=== PATIENT | male | born 1960 | race African-American/Black ===

== ENCOUNTER 2018-07-11 15:43 | Observation (INO) | payer OTHER ==
[2018-07-11] VITALS (8 sets, daily range): BP systolic 130–148; BP diastolic 79–93
[~2018-07-11] VITALS: Ht 182.9 cm; Wt 84.8 kg
[2018-07-11] MEDS ORDERED: Morphine Sulfate 4mg/ml Inj (IV USE ONLY) IVP ONE ×2 (16:00→16:15)
[2018-07-11] MEDS ORDERED: Morphine Sulfate 4mg/ml Inj (IV USE ONLY) ONE (16:15)
--- NOTE | 2018-07-11 16:15 | Emergency Room Report ---
History of Present Illness General Chief Complaint: Pain Source: Patient, EMS Present Illness HPI 57-year-old male presenting with right inguinal hernia pain. Patient states that his inguinal hernia unable to be reduced for the last hour. Has not had a bowel movement today but is passing gas. No vomiting. Complaining of severe pain for the last hour no other complaints Allergies: Coded Allergies: No Known Allergies (Unverified , 07/11/18) Patient History Past Medical History: see triage record Past Surgical History: none Pertinent Family History: none Reviewed Nursing Documentation: PMH: Agreed; PSxH: Agreed Review of Systems All Other Systems: negative except mentioned in HPI Physical Exam Vital Signs Date Time Temp Pulse Resp B/P (MAP) Pulse Ox O2 Delivery O2 Flow Rate FiO2 07/11/18 15:40 98.6 66 20 147/89 98 Room Air 98.6 Sp02 EP Interpretation: reviewed, normal General Appearance: alert, GCS 15, non-toxic, moderate distress Head: normocephalic, atraumatic Eyes: bilateral eye normal inspection, bilateral eye PERRL, bilateral eye EOMI ENT: normal ENT inspection, normal pharynx, normal voice, moist mucus membranes Neck: normal inspection, full range of motion, supple Respiratory: normal inspection, lungs clear, normal breath sounds, no respiratory distress, no retraction, no wheezing, speaking full sentences, chest symmetrical Cardiovascular #1: normal inspection, regular rate, rhythm, no edema, normal capillary refill Cardiovascular #2: 2+ radial (R), 2+ radial (L) Gastrointestinal: normal inspection, non tender, soft, non-distended, no guarding Genitourinary: other - Right inguinal hernia unable to be reduced, moderately/ large Musculoskeletal: normal inspection, back normal, normal range of motion, non- tender Neurologic: normal inspection, alert, oriented x3, responsive, motor strength/ tone normal, sensory intact, normal gait, speech normal Psychiatric: normal inspection, judgement/insight normal, memory normal Skin: normal inspection, normal color, no rash, warm/dry, well hydrated, normal turgor Medical Decision Making Diagnostic Impression: Primary Impression: Incarcerated inguinal hernia, unilateral ER Course 57-year-old male with right inguinal hernia DDX: Right inguinal hernia unable to be reduced, tender last 2 hours Plan: Obtain labs, pain medication Attempt reduction versus surgery consult ER course: Patient has been monitored during ED stay, HD stable Given morphine 2 and Zofran Attempted reduction 2, however unsuccessful despite giving a lot of pain medication. I spoke with . He will take patient to the OR Disposition: Patient is to be admitted Medicine via the OR. I spoke with covering for Dr blakely Please note that this Emergency Department Report was dictated using [employer] leather sorter technology software, occasionally this can lead to erroneous entry secondary to interpretation by the dictation equipment. Rhythm Strip EP Interpretation: Yes Rate: 77 Rhythm: NSR, no PVCs, no ectopy EKG Diagnostic Results EP Interpretation: Yes Rate: normal Rhythm: NSR ST Segments: No acute changes ASA given to patient: No Laboratory Tests Test 07/11/18 15:56 White Blood Count 4.8 K/UL (4.8-10.8) Red Blood Count 4.56 M/UL (4.70-6.10) L Hemoglobin 14.0 G/DL (14.2-18.0) L Hematocrit 40.5 % (42.0-52.0) L Mean Corpuscular Volume 89 FL (80-99) Mean Corpuscular Hemoglobin 30.7 PG (27.0-31.0) Mean Corpuscular Hemoglobin Concent 34.6 G/DL (32.0-36.0) Red Cell Distribution Width 10.5 % (11.6-14.8) L Platelet Count 319 K/UL (150-450) Mean Platelet Volume 5.3 FL (6.5-10.1) L Neutrophils (%) (Auto) 60.4 % (45.0-75.0) Lymphocytes (%) (Auto) 28.1 % (20.0-45.0) Monocytes (%) (Auto) 8.1 % (1.0-10.0) Eosinophils (%) (Auto) 1.7 % (0.0-3.0) Basophils (%) (Auto) 1.7 % (0.0-2.0) Prothrombin Time 11.4 SEC (9.30-11.50) Prothrombin Time INR 1.1 (0.9-1.1) PTT 34 SEC (23-33) H Urine Color Yellow Urine Appearance Clear Urine pH 6 (4.5-8.0) Urine Specific [place] 1.020 (1.005-1.035) Urine Protein Negative (NEGATIVE) Urine Glucose (UA) Negative (NEGATIVE) Urine Ketones Negative (NEGATIVE) Urine Blood 1+ (NEGATIVE) H Urine Nitrite Negative (NEGATIVE) Urine Bilirubin Negative (NEGATIVE) Urine Urobilinogen 1 MG/DL (0.0-1.0) H Urine Leukocyte Esterase Negative (NEGATIVE) Urine RBC 0-2 /HPF (0 - 0) H Urine WBC 0-2 /HPF (0 - 0) Urine Squamous Epithelial Cells Occasional /LPF Urine Bacteria None /HPF (NONE) Sodium Level 137 MMOL/L (136-145) Potassium Level 4.0 MMOL/L (3.5-5.1) Chloride Level 102 MMOL/L (98-107) Carbon Dioxide Level 31 MMOL/L (21-32) Anion Gap 4 mmol/L (5-15) L Blood Urea Nitrogen 14 mg/dL (7-18) Creatinine 1.1 MG/DL (0.55-1.30) Estimate Glomerular Filtration Rate > 60 mL/min (>60) Glucose Level 102 MG/DL (74-106) Lactic Acid Level 0.90 mmol/L (0.4-2.0) Calcium Level 9.6 MG/DL (8.5-10.1) Total Bilirubin 0.4 MG/DL (0.2-1.0) Aspartate Amino Transferase (AST) 33 U/L (15-37) Alanine Aminotransferase (ALT) 43 U/L (12-78) Alkaline Phosphatase 67 U/L (46-116) Total Protein 8.4 G/DL (6.4-8.2) H Albumin 3.5 G/DL (3.4-5.0) Globulin 4.9 g/dL Albumin/Globulin Ratio 0.7 (1.0-2.7) L Lipase 55 U/L (73-393) L Last Vital Signs Date Time Temp Pulse Resp B/P (MAP) Pulse Ox O2 Delivery O2 Flow Rate FiO2 07/11/18 16:05 98.6 07/11/18 15:40 66 20 147/89 98 Room Air Disposition: ADMITTED INPATIENT Condition: Yina Norris M.D. Jul 11, 2018 16:15
[2018-07-11 16:17] LABS: APPEARANCE,URINE CLEAR; BASOPHILS % (AUTO) 1.7 % (0.0-2.0); BILIRUBIN, URINE NEGATIVE (NEGATIVE); EOSINOPHILS % (AUTO) 1.7 % (0.0-3.0); GLUCOSE, URINE (UA) NEGATIVE (NEGATIVE); HEMATOCRIT 40.5 % (42.0-52.0); KETONES,URINE NEGATIVE (NEGATIVE); LEUKOCYTE ESTERASE ,URINE NEGATIVE (NEGATIVE); LYMPHOCYTES % (AUTO) 28.1 % (20.0-45.0); MEAN CORPUSCULAR VOLUME 89 FL (80-99); MONOCYTES % (AUTO) 8.1 % (1.0-10.0); NEUTROPHILS % (AUTO) 60.4 % (45.0-75.0); NITRITE,URINE NEGATIVE (NEGATIVE); PH,URINE 6 (4.5-8.0); PLATELET COUNT 319 K/UL (150-450); PROTEIN,URINE NEGATIVE (NEGATIVE); RED BLOOD COUNT 4.56 M/UL (4.70-6.10); RED CELL DISTRIBUTION WIDTH 10.5 % (11.6-14.8); UROBILINOGEN,URINE 1 MG/DL (0.0-1.0); WHITE BLOOD COUNT 4.8 K/UL (4.8-10.8)
[2018-07-11 16:20] LABS: COLOR,URINE YELLOW
[2018-07-11 16:25] LABS: ANION GAP 4 mmol/L (5-15); BLOOD UREA NITROGEN 14 mg/dL (7-18); CALCIUM 9.6 MG/DL (8.5-10.1); CARBON DIOXIDE 31 MMOL/L (21-32); CHLORIDE 102 MMOL/L (98-107); CREATININE 1.1 MG/DL (0.55-1.30); SODIUM 137 MMOL/L (136-145)
[2018-07-11 16:28] LABS: ALANINE AMINOTRANSFERASE 43 U/L (12-78); ALBUMIN 3.5 G/DL (3.4-5.0); ALBUMIN/GLOBULIN RATIO 0.7 (1.0-2.7); ALKALINE PHOSPHATASE 67 U/L (46-116); ASPARTATE AMINO TRANSFERASE 33 U/L (15-37); BILIRUBIN,TOTAL 0.4 MG/DL (0.2-1.0)
[2018-07-11 16:33] LABS: INR 1.1 (0.9-1.1)
[2018-07-11] MEDS ORDERED: Hydromorphone 0.5mg/0.5ml inj IVP ONE (17:00)
--- NOTE | 2018-07-11 17:31 | Pre-Procedure Note/Attestation ---
Pre-Procedure Note/Attestation Complete Prior to Procedure Planned Procedure: right Procedure Narrative: Right Inguinal herniorrhaphy with release of strangulation Indications for Procedure Pre-Operative Diagnosis: Strangulated right Inguinal hernia Attestation I attest that I discussed the nature of the procedure; its benefits; risks and complications; and alternatives (and the risks and benefits of such alternatives ), prior to the procedure, with the patient (or the patient's legal access service representative). I attest that, if there was a reasonable possibility of needing a blood transfusion, the patient (or the patient's legal access service representative) was given the [facility] standardized written summary, pursuant to the [place] Blood Safety Act ([place] Health and Safety Code # 1645, as amended). I attest that I re-evaluated the patient just prior to the surgery and that there has been no change in the patient's H&P, except as documented below: Christian Goss MD Jul 11, 2018 17:31
[2018-07-11] MEDS ORDERED: ceFAZolin 2gm/50ml Premix 50 ML IVPB ONE (17:45)
[2018-07-11] MEDS ORDERED: Bupivacaine 0.5% Inj 30 ml vial INJ ONE (18:13)
[2018-07-11] MEDS ORDERED: NeoSporin Gu Irrig 1ml Amp IRRIG ONE (18:14)
[2018-07-11] MEDS ORDERED: Bacitracin 50000 Units Vial ONE (18:14)
[2018-07-11] MEDS ORDERED: Sterile Water Irrig 1000ml IRRIG ONE (18:30)
[2018-07-11] MEDS ORDERED: LR 1000ml ONE (18:30)
[2018-07-11] MEDS ORDERED: Propofol 200mg/20ml IV ONE (18:30)
[2018-07-11] MEDS ORDERED: NS Irrig 1000ml ONE (18:30)
[2018-07-11] MEDS ORDERED: fentaNYL 100 mcg/2 mL IV ONE (18:43)
[2018-07-11] MEDS ORDERED: Lidocaine 1% MPF 10mg/ml 5ml ONE (18:48)
[2018-07-11] MEDS ORDERED: Dexamethasone 4mg/ml vial ONE (18:48)
[2018-07-11] MEDS ORDERED: Sodium Chloride 10ml vial INJ ONE (18:48)
[2018-07-11] MEDS ORDERED: LR 1000ml 1,000 ML IVLG SCH (19:23)
[2018-07-11] MEDS ORDERED: oxyCODONE HCL/Acetaminophen 5/325mg ORAL PRN (19:30)
[2018-07-11] MEDS ORDERED: Midazolam 2mg/2ml Inj IVP PRN (19:30)
[2018-07-11] MEDS ORDERED: Atropine Sulfate 0.4mg/ml inj IVP PRN (19:30)
[2018-07-11] MEDS ORDERED: HYDROcodone/Acetamin 7.5/325 tab ORAL PRN (19:30)
[2018-07-11] MEDS ORDERED: LORazepam Inj 2mg/ml 1ml IV PRN (19:30)
[2018-07-11] MEDS ORDERED: Ketorolac 30mg Inj IV PRN ×2 (19:30)
[2018-07-11] MEDS ORDERED: Norco 5mg/325mg tab ORAL PRN (19:30)
[2018-07-11] MEDS ORDERED: Hydromorphone 0.5mg/0.5ml inj IVP PRN ×2 (19:30→20:30)
[2018-07-11] MEDS ORDERED: Metoclopramide 10mg/2ml Inj IVP PRN ×3 (19:30→22:00)
[2018-07-11] MEDS ORDERED: Labetalol 5mg/ml 20ml vial IV PRN (19:30)
[2018-07-11] MEDS ORDERED: DiphenhydrAMINE 50mg/ml Inj IVP PRN (19:30)
[2018-07-11] MEDS ORDERED: Meperidine 50mg/ml Inj(FOR RIGORS ONLY) IVP PRN (19:30)
[2018-07-11] MEDS ORDERED: fentaNYL 100 mcg/2 mL IV PRN (19:30)
--- NOTE | 2018-07-11 19:30 | Anethesia Preoperative Eval ---
Anesthesia Pre-op PMH/ROS General Date of Evaluation: Jul 11, 2018 Time of Evaluation: 18:33 Anesthesiologist: Ngozi ASA Score: ASA 3 - Emergency Mallampati Score Class I : Soft palate, uvula, fauces, pillars visible Class II: Soft palate, uvula, fauces visible Class III: Soft palate, base of uvula visible Class IV: Only hard plate visible Mallampati Classification: Class II Surgeon: Ana Paula Diagnosis: Incarcerated R Inguinal Hernia Surgical Procedure: R Inguinal Herninorrhaphy Anesthesia History: none Social History: current smoker Family History: no anesthesia problems Allergies: Coded Allergies: No Known Allergies (Unverified , 07/11/18) Medications: see eMAR Past Medical History Cardiovascular: Reports: HTN Endocrine: Reports: other - Graves Anesthesia Pre-op Phys. Exam Physician Exam Last Vital Signs Date Time Temp Pulse Resp B/P (MAP) Pulse Ox O2 Delivery O2 Flow Rate FiO2 07/11/18 18:33 98.6 60 18 145/84 99 Room Air 98.6 Constitutional: NAD Neurologic: CN 2-12 intact Cardiovascular: RRR Respiratory: CTA Gastrointestinal: S/NT/ND Airway Exam Mallampati Score: Class II MO: limited ROM: limited Teeth: missing, intact Anesthesia Pre-op A/P Labs Hematology Test 07/11/18 15:56 White Blood Count 4.8 K/UL (4.8-10.8) Red Blood Count 4.56 M/UL (4.70-6.10) L Hemoglobin 14.0 G/DL (14.2-18.0) L Hematocrit 40.5 % (42.0-52.0) L Mean Corpuscular Volume 89 FL (80-99) Mean Corpuscular Hemoglobin 30.7 PG (27.0-31.0) Mean Corpuscular Hemoglobin Concent 34.6 G/DL (32.0-36.0) Red Cell Distribution Width 10.5 % (11.6-14.8) L Platelet Count 319 K/UL (150-450) Mean Platelet Volume 5.3 FL (6.5-10.1) L Neutrophils (%) (Auto) 60.4 % (45.0-75.0) Lymphocytes (%) (Auto) 28.1 % (20.0-45.0) Monocytes (%) (Auto) 8.1 % (1.0-10.0) Eosinophils (%) (Auto) 1.7 % (0.0-3.0) Basophils (%) (Auto) 1.7 % (0.0-2.0) Coagulation Test 07/11/18 15:56 Prothrombin Time 11.4 SEC (9.30-11.50) Prothromb Time International Ratio 1.1 (0.9-1.1) Activated Partial Thromboplast Time 34 SEC (23-33) H Chemistry Test 07/11/18 15:56 Sodium Level 137 MMOL/L (136-145) Potassium Level 4.0 MMOL/L (3.5-5.1) Chloride Level 102 MMOL/L (98-107) Carbon Dioxide Level 31 MMOL/L (21-32) Anion Gap 4 mmol/L (5-15) L Blood Urea Nitrogen 14 mg/dL (7-18) Creatinine 1.1 MG/DL (0.55-1.30) Estimat Glomerular Filtration Rate > 60 mL/min (>60) Glucose Level 102 MG/DL (74-106) Lactic Acid Level 0.90 mmol/L (0.4-2.0) Calcium Level 9.6 MG/DL (8.5-10.1) Total Bilirubin 0.4 MG/DL (0.2-1.0) Aspartate Amino Transf (AST/SGOT) 33 U/L (15-37) Alanine Aminotransferase (ALT/SGPT) 43 U/L (12-78) Alkaline Phosphatase 67 U/L (46-116) Total Protein 8.4 G/DL (6.4-8.2) H Albumin 3.5 G/DL (3.4-5.0) Globulin 4.9 g/dL Albumin/Globulin Ratio 0.7 (1.0-2.7) L Lipase 55 U/L (73-393) L Risk Assessment & Plan Assessment: ASA 3E Plan: GA, SED, GlideScope Status Change Before Surgery: No Pre-Antibiotics Dru GramAncef IV Given Within 1 Hr of Incision: Yes Time Given: 19:01 Antwan Melvin MD Jul 11, 2018 19:30
--- NOTE | 2018-07-11 19:31 | Immediate Post-Op Evaluation ---
Immediate Post-Op Evalulation Immediate Post-Op Evalulation Procedure: R Inguinal Herninorrhaphy Date of Evaluation: Jul 11, 2018 Time of Evaluation: 20:24 IV Fluids: 500 LR Blood Products: 0 Estimated Blood Loss: 10 Urinary Output: 0 Blood Pressure Systolic: 131 Blood Pressure Diastolic: 85 Pulse Rate: 79 Respiratory Rate: 16 O2 Sat by Pulse Oximetry: 100 Temperature (Fahrenheit): 97.2 Pain Score (1-10): 2 Nausea: No Vomiting: No Complications 0 Patient Status: awake, reacts, patent, extubated, none Hydration Status: adequate Dru Gram Ancef IV Given Within 1 Hr of Incision: Yes Time Given: 19:01 Antwan Melvin MD Jul 11, 2018 19:31
[2018-07-11] MEDS ORDERED: Ketorolac 30mg Inj ONE (20:05)
[2018-07-11] MEDS ORDERED: D5 1/2NS w/KCl 20mEq 1,000 ML IV SCH (20:21)
--- NOTE | 2018-07-11 20:21 | Brief Operative Note ---
Immediate Post Operative Note Operative Note Pre-op Diagnosis: Strangulated right Inguinal hernia Procedure: Right inguinal herniorrhaphy Post-op Diagnosis: incarcerated right inguinal hernia Findings: consistent w/pre-op dx studies Surgeon: MD elsie Overseamer: none Anesthesiologist: DR Melvin Anesthesia: general Specimen: yes Complications: none Condition: stable Fluids: per anesthesiologist Estimated Blood Loss: volume - 10 ml Drains: none Implant(s) used?: Yes Christian Goss MD Jul 11, 2018 20:21
[2018-07-11] MEDS ORDERED: Sennosides 8.6mg ORAL PRN (20:30)
[2018-07-11] MEDS ORDERED: HYDROmorphone 1mg/ml Carpuject IVP PRN (20:30)
[2018-07-12] VITALS: BP 138/80
--- NOTE | 2018-07-12 | Operative Note - Dictated ---
DATE OF OPERATION: 07/11/2018 PREOPERATIVE DIAGNOSIS: Strangulated right inguinal hernia. POSTOPERATIVE DIAGNOSIS: Incarcerated right inguinal hernia. OPERATIONS: 1. Right inguinal herniorrhaphy and release of incarceration. 2. Blockage of the nerves to the right groin for the postoperative pain control. COMPLICATIONS: None. SURGEON: Christian Goss M.D. CLINICAL OPERATIONS SPECIALIST: None. ANESTHESIA: General with endotracheal tube. ANESTHESIOLOGIST: Antwan Melvin M.D. INDICATION: This is a 57-year-old male, who presented with pain and swelling of the right groin and right scrotum for 2 to 3 hours. He stated that he has had a hernia for 3 months, which has been reducible, but 3 hours prior to the admission it has been irreducible and severely tender. He denied vomiting, but he was nauseated. Physical examination showed an irreducible right inguinal hernia, which was all the way to the bottom of the scrotum, very tense, and tender. DESCRIPTION OF PROCEDURE: The patient was placed supine on the operating table and after general anesthesia with endotracheal tube, the right groin was properly prepped and draped. A transverse right inguinal incision was given and was carried sharply through subcutaneous tissue and Marissa fascia. The aponeurosis of the external oblique was reached and was opened along its fibers towards the external ring. At this area, the spermatic cord was identified, but it was not released in situ. The exploration of the spermatic cord was performed and the indirect sac was identified, was opened up. This incision was extended and it was noticed that the patient had large amount of small bowel in the scrotum. The bowels were completely brought into the wound. It was of the small bowel, but the color was very well and it was not dusky. The bowel was gradually released into the intra-abdominal cavity and then, the sac of the hernia was bluntly dissected immediately distal to the internal ring. At this part, the small piece was removed. The neck was transligated with a 3-0 silk. The rest of the sac was left in situ and only the edge was cauterized. At this point, the spermatic cord was released and the floor of the inguinal canal was exposed. A piece of Prolene mesh was selected and was tailored to size of the floor of the inguinal canal. This mesh was secured in place with multiple interrupted suture of 2-0 Vicryl. The spermatic cord was passed through a small slit at the lower part of the mesh. During the dissection and repair, inguinal and iliohypogastric nerves were identified and preserved. After the application of the mesh, the incision was thoroughly irrigated with antibiotic solution and then it was infiltrated with total of 20 mL of Marcaine 0.25%. The nerves to the right groin were blocked with infiltration of 10 mL of Marcaine for the postoperative pain control. After the injection, the aponeurosis of the external oblique was approximated with running suture of 2-0 Vicryl. The subcutaneous tissue was approximated in 2 layers with 3-0 plain catgut and the skin incision, which was over 2 inches were approximated with running subcuticular suture of 4-0 chromic. The patient tolerated the procedure very well and was transferred to recovery room in stable condition and extubated. The sponge and needle count were correct. Estimated blood loss 10 mL. Condition of the patient at the end of the procedure was stable. Christian Goss M.D. DR: HASEEB JOB#: [id number] CC:
--- NOTE | 2018-07-12 01:30 | Pre-op HX & Phy Repo 2 SIG ---
CONSULTING PHYSICIAN: Christian Goss M.D. REASON FOR CONSULTATION: Pain of the scrotum. REQUESTING PHYSICIAN: Emergency room physician. HISTORY OF PRESENT ILLNESS: This is a 57-year-old male, who presented to emergency room complaining of pain at the right groin and right scrotum for about 2 to 3 hours. He stated that for about 3 months, he had the hernia on the right side, which was reducible, but today about 3 hours ago it protruded and did not reduce and developed severe swelling. He denies vomiting, but he has been nauseated. He denies any fever, cough, dysuria, or frequency. He denies any previous history of similar episodes. PAST MEDICAL HISTORY: He denies allergies, asthma, diabetes, hypertension, cardiac or renal diseases. He has a history of Graves disease, but he stopped taking the medication. PAST SURGICAL HISTORY: None. MEDICATIONS: None. SOCIAL HISTORY: The patient is a 57-year-old male, who is single with 1 child. He is unemployed, smokes 3-4 cigarettes a day, but denies drinking. REVIEW OF SYSTEMS: Noncontributory. PHYSICAL EXAMINATION: VITAL SIGNS: The patient appeared to be a well-developed, well-nourished, 57-year-old male, lying on the gurney, complaining of pain of the right groin. HEENT: Head is normocephalic and atraumatic. Eyes, pupils are equal, round, and reactive to light. Mouth is clear. NECK: There is no palpable thyromegaly or adenopathy. CHEST: Clear to auscultation and percussion. HEART: There is no gallop or murmur. S1 and S2 are within normal limits. ABDOMEN: Soft, flat, nontender. There is no palpable organomegaly and bowel sounds are audible. GENITAL: He has a normal uncircumcised penis. His testicles are normal on the left side. The right side cannot be felt. He has irreducible and very tender right inguinal hernia, which covers the whole right side of the scrotum, this hernia was very large. EXTREMITIES: Within normal limits. ASSESSMENT: Strangulated right inguinal hernia. PLAN: The patient requires an emergency right inguinal herniorrhaphy with release of a strangulation. The risk and benefits have been explained to him. He understood and granted consent. Christian Goss M.D. DR: SUNITA JOB#: [id number] CC:
[2018-07-12] MEDS: ceFAZolin sod 1 GM in D5W 55 ML IV SCH ×2 (02:08→12:28)
[2018-07-12 04:00] VITALS: BP 141/84
[2018-07-12 07:05] LABS: HEMATOCRIT 40.2 % (42.0-52.0); HEMOGLOBIN 13.9 G/DL (14.2-18.0); MEAN CORPUSCULAR VOLUME 87 FL (80-99); PLATELET COUNT 297 K/UL (150-450); RED BLOOD COUNT 4.59 M/UL (4.70-6.10); RED CELL DISTRIBUTION WIDTH 10.6 % (11.6-14.8); WHITE BLOOD COUNT 9.5 K/UL (4.8-10.8)
[2018-07-12 07:15] LABS: ANION GAP 3 mmol/L (5-15); BLOOD UREA NITROGEN 19 mg/dL (7-18); CALCIUM 9.2 MG/DL (8.5-10.1); CARBON DIOXIDE 29 MMOL/L (21-32); CHLORIDE 103 MMOL/L (98-107); CREATININE 1.1 MG/DL (0.55-1.30); POTASSIUM 4.3 MMOL/L (3.5-5.1); SODIUM 135 MMOL/L (136-145)
[2018-07-12 08:00] VITALS: BP 135/79
--- NOTE | 2018-07-12 09:47 | History and Physical ---
History of Present Illness General Date patient seen: Jul 12, 2018 Time patient seen: 09:47 Reason for Hospitalization: Pain Present Illness Allergies: Coded Allergies: No Known Allergies (Unverified , 07/11/18) Patient History Healthcare decision maker Resuscitation status Full Code Advanced Directive on File No Physical Exam Last 24 Hour Vital Signs Date Time Temp Pulse Resp B/P (MAP) Pulse Ox O2 Delivery O2 Flow Rate FiO2 07/12/18 08:00 98.4 66 18 135/79 (97) 98 98.4 07/12/18 04:00 98.4 74 17 141/84 (103) 100 98.4 07/12/18 00:24 Nasal Cannula 2.0 28 07/12/18 00:00 98.0 66 18 138/80 (99) 98 98.0 07/11/18 22:35 Nasal Cannula 3.0 07/11/18 21:23 97.4 74 16 133/83 97 Nasal Cannula 3 97.4 07/11/18 21:15 74 16 130/79 97 Nasal Cannula 3 07/11/18 21:00 73 16 134/88 97 Nasal Cannula 3 07/11/18 20:45 73 16 134/90 97 Simple Mask 8 07/11/18 20:29 73 16 134/93 97 Simple Mask 8 07/11/18 20:24 97.2 79 16 131/85 97 Simple Mask 8 97.2 07/11/18 20:22 207.0 79 16 100 07/11/18 18:33 98.6 60 18 145/84 99 Room Air 98.6 07/11/18 18:28 98.6 60 18 148/83 99 Room Air 209.5 07/11/18 16:56 98.6 07/11/18 16:17 98.6 07/11/18 16:05 98.6 07/11/18 15:45 98.6 60 18 148/83 99 Room Air 98.6 07/11/18 15:40 98.6 66 20 147/89 98 Room Air 98.6 Intake and Output 07/11/18 07/12/18 19:00 07:00 Intake Total 1560 ml Output Total 610 ml Balance 950 ml Intake Oral 760 ml IV Total 800 ml Output Urine Total 600 ml Estimated Blood Loss 10 ml # Voids 1 1 Laboratory Tests Test 07/11/18 15:56 07/12/18 06:20 White Blood Count 4.8 K/UL (4.8-10.8) 9.5 K/UL (4.8-10.8) # Red Blood Count 4.56 M/UL (4.70-6.10) L 4.59 M/UL (4.70-6.10) L Hemoglobin 14.0 G/DL (14.2-18.0) L 13.9 G/DL (14.2-18.0) L Hematocrit 40.5 % (42.0-52.0) L 40.2 % (42.0-52.0) L Mean Corpuscular Volume 89 FL (80-99) 87 FL (80-99) Mean Corpuscular Hemoglobin 30.7 PG (27.0-31.0) 30.2 PG (27.0-31.0) Mean Corpuscular Hemoglobin Concent 34.6 G/DL (32.0-36.0) 34.5 G/DL (32.0-36.0) Red Cell Distribution Width 10.5 % (11.6-14.8) L 10.6 % (11.6-14.8) L Platelet Count 319 K/UL (150-450) 297 K/UL (150-450) Mean Platelet Volume 5.3 FL (6.5-10.1) L 5.2 FL (6.5-10.1) L Neutrophils (%) (Auto) 60.4 % (45.0-75.0) % (45.0-75.0) Lymphocytes (%) (Auto) 28.1 % (20.0-45.0) % (20.0-45.0) Monocytes (%) (Auto) 8.1 % (1.0-10.0) % (1.0-10.0) Eosinophils (%) (Auto) 1.7 % (0.0-3.0) % (0.0-3.0) Basophils (%) (Auto) 1.7 % (0.0-2.0) % (0.0-2.0) Prothrombin Time 11.4 SEC (9.30-11.50) Prothromb Time International Ratio 1.1 (0.9-1.1) Activated Partial Thromboplast Time 34 SEC (23-33) H Urine Color Yellow Urine Appearance Clear Urine pH 6 (4.5-8.0) Urine Specific [place] 1.020 (1.005-1.035) Urine Protein Negative (NEGATIVE) Urine Glucose (UA) Negative (NEGATIVE) Urine Ketones Negative (NEGATIVE) Urine Blood 1+ (NEGATIVE) H Urine Nitrite Negative (NEGATIVE) Urine Bilirubin Negative (NEGATIVE) Urine Urobilinogen 1 MG/DL (0.0-1.0) H Urine Leukocyte Esterase Negative (NEGATIVE) Urine RBC 0-2 /HPF (0 - 0) H Urine WBC 0-2 /HPF (0 - 0) Urine Squamous Epithelial Cells Occasional /LPF Urine Bacteria None /HPF (NONE) Sodium Level 137 MMOL/L (136-145) 135 MMOL/L (136-145) L Potassium Level 4.0 MMOL/L (3.5-5.1) 4.3 MMOL/L (3.5-5.1) Chloride Level 102 MMOL/L (98-107) 103 MMOL/L (98-107) Carbon Dioxide Level 31 MMOL/L (21-32) 29 MMOL/L (21-32) Anion Gap 4 mmol/L (5-15) L 3 mmol/L (5-15) L Blood Urea Nitrogen 14 mg/dL (7-18) 19 mg/dL (7-18) H Creatinine 1.1 MG/DL (0.55-1.30) 1.1 MG/DL (0.55-1.30) Estimat Glomerular Filtration Rate > 60 mL/min (>60) > 60 mL/min (>60) Glucose Level 102 MG/DL (74-106) 185 MG/DL (74-106) H Lactic Acid Level 0.90 mmol/L (0.4-2.0) Calcium Level 9.6 MG/DL (8.5-10.1) 9.2 MG/DL (8.5-10.1) Total Bilirubin 0.4 MG/DL (0.2-1.0) Aspartate Amino Transf (AST/SGOT) 33 U/L (15-37) Alanine Aminotransferase (ALT/SGPT) 43 U/L (12-78) Alkaline Phosphatase 67 U/L (46-116) Total Protein 8.4 G/DL (6.4-8.2) H Albumin 3.5 G/DL (3.4-5.0) Globulin 4.9 g/dL Albumin/Globulin Ratio 0.7 (1.0-2.7) L Lipase 55 U/L (73-393) L Neutrophils % (Manual) Pending Lymphocytes % (Manual) Pending Platelet Estimate Pending Platelet Morphology Pending Height (Feet): 6 Height (Inches): 0.00 Weight (Pounds): 187 Medications Current Medications Medications (Trade) Dose Ordered Sig/Angela Route PRN Reason Start Time Stop Time Status Last Admin Dose Admin Acetaminophen (Tylenol) 650 mg Q4H PRN ORAL FEVER 07/11/18 20:30 08/10/18 20:29 Acetaminophen (Tylenol) 650 mg Q6H PRN ORAL Mild Pain (Pain Scale 1-3) 07/11/18 20:30 08/10/18 20:29 Cefazolin Sodium 1 gm/Dextrose 55 ml @ 110 mls/hr Q8H IV 07/12/18 03:00 07/12/18 11:29 07/12/18 02:08 Famotidine (Pepcid) 20 mg BID ORAL 07/12/18 09:00 08/11/18 08:59 07/12/18 09:13 Hydromorphone HCl (Dilaudid) 0.5 mg Q3H PRN IVP Pain Score 1-3 07/11/18 20:30 07/18/18 20:29 Hydromorphone HCl (Dilaudid) 1 mg Q3H PRN IVP pain score 4-6 07/11/18 20:30 07/18/18 20:29 Metoclopramide HCl (Reglan) 10 mg Q6H PRN IVP Nausea & Vomiting 07/11/18 22:00 08/10/18 20:29 Ondansetron HCl (Zofran) 4 mg Q6H PRN IVP Nausea & Vomiting 07/11/18 20:30 08/10/18 20:29 Sennosides (Senokot) 1 tab BIDPRN PRN ORAL Constipation 07/11/18 20:30 08/10/18 20:29 Amada Pillai M.D. Jul 12, 2018 09:47
--- NOTE | 2018-07-12 11:23 | General Surgery Progress Note ---
General Surgery-Progress Note Subjective Procedure Performed Right inguinal herniorrhaphy Symptoms: improved, passing flatus Objective Last 24 Hour Vital Signs Date Time Temp Pulse Resp B/P (MAP) Pulse Ox O2 Delivery O2 Flow Rate FiO2 07/12/18 08:00 98.4 66 18 135/79 (97) 98 98.4 07/12/18 04:00 98.4 74 17 141/84 (103) 100 98.4 07/12/18 00:24 Nasal Cannula 2.0 28 07/12/18 00:00 98.0 66 18 138/80 (99) 98 98.0 07/11/18 22:35 Nasal Cannula 3.0 07/11/18 21:23 97.4 74 16 133/83 97 Nasal Cannula 3 97.4 07/11/18 21:15 74 16 130/79 97 Nasal Cannula 3 07/11/18 21:00 73 16 134/88 97 Nasal Cannula 3 07/11/18 20:45 73 16 134/90 97 Simple Mask 8 07/11/18 20:29 73 16 134/93 97 Simple Mask 8 07/11/18 20:24 97.2 79 16 131/85 97 Simple Mask 8 97.2 07/11/18 20:22 207.0 79 16 100 07/11/18 18:33 98.6 60 18 145/84 99 Room Air 98.6 07/11/18 18:28 98.6 60 18 148/83 99 Room Air 209.5 07/11/18 16:56 98.6 07/11/18 16:17 98.6 07/11/18 16:05 98.6 07/11/18 15:45 98.6 60 18 148/83 99 Room Air 98.6 07/11/18 15:40 98.6 66 20 147/89 98 Room Air 98.6 I&O Intake and Output 07/11/18 07/12/18 19:00 07:00 Intake Total 1560 ml Output Total 610 ml Balance 950 ml Intake Oral 760 ml IV Total 800 ml Output Urine Total 600 ml Estimated Blood Loss 10 ml # Voids 1 1 Dressing: dry Drains: none Respiratory: clear Abdomen: soft, flat, non-tender, present bowel sounds Extremities: no edema, no tenderness Laboratory Tests Test 07/11/18 15:56 07/12/18 06:20 White Blood Count 4.8 K/UL (4.8-10.8) 9.5 K/UL (4.8-10.8) # Red Blood Count 4.56 M/UL (4.70-6.10) L 4.59 M/UL (4.70-6.10) L Hemoglobin 14.0 G/DL (14.2-18.0) L 13.9 G/DL (14.2-18.0) L Hematocrit 40.5 % (42.0-52.0) L 40.2 % (42.0-52.0) L Mean Corpuscular Volume 89 FL (80-99) 87 FL (80-99) Mean Corpuscular Hemoglobin 30.7 PG (27.0-31.0) 30.2 PG (27.0-31.0) Mean Corpuscular Hemoglobin Concent 34.6 G/DL (32.0-36.0) 34.5 G/DL (32.0-36.0) Red Cell Distribution Width 10.5 % (11.6-14.8) L 10.6 % (11.6-14.8) L Platelet Count 319 K/UL (150-450) 297 K/UL (150-450) Mean Platelet Volume 5.3 FL (6.5-10.1) L 5.2 FL (6.5-10.1) L Neutrophils (%) (Auto) 60.4 % (45.0-75.0) % (45.0-75.0) Lymphocytes (%) (Auto) 28.1 % (20.0-45.0) % (20.0-45.0) Monocytes (%) (Auto) 8.1 % (1.0-10.0) % (1.0-10.0) Eosinophils (%) (Auto) 1.7 % (0.0-3.0) % (0.0-3.0) Basophils (%) (Auto) 1.7 % (0.0-2.0) % (0.0-2.0) Prothrombin Time 11.4 SEC (9.30-11.50) Prothromb Time International Ratio 1.1 (0.9-1.1) Activated Partial Thromboplast Time 34 SEC (23-33) H Urine Color Yellow Urine Appearance Clear Urine pH 6 (4.5-8.0) Urine Specific [place] 1.020 (1.005-1.035) Urine Protein Negative (NEGATIVE) Urine Glucose (UA) Negative (NEGATIVE) Urine Ketones Negative (NEGATIVE) Urine Blood 1+ (NEGATIVE) H Urine Nitrite Negative (NEGATIVE) Urine Bilirubin Negative (NEGATIVE) Urine Urobilinogen 1 MG/DL (0.0-1.0) H Urine Leukocyte Esterase Negative (NEGATIVE) Urine RBC 0-2 /HPF (0 - 0) H Urine WBC 0-2 /HPF (0 - 0) Urine Squamous Epithelial Cells Occasional /LPF Urine Bacteria None /HPF (NONE) Sodium Level 137 MMOL/L (136-145) 135 MMOL/L (136-145) L Potassium Level 4.0 MMOL/L (3.5-5.1) 4.3 MMOL/L (3.5-5.1) Chloride Level 102 MMOL/L (98-107) 103 MMOL/L (98-107) Carbon Dioxide Level 31 MMOL/L (21-32) 29 MMOL/L (21-32) Anion Gap 4 mmol/L (5-15) L 3 mmol/L (5-15) L Blood Urea Nitrogen 14 mg/dL (7-18) 19 mg/dL (7-18) H Creatinine 1.1 MG/DL (0.55-1.30) 1.1 MG/DL (0.55-1.30) Estimat Glomerular Filtration Rate > 60 mL/min (>60) > 60 mL/min (>60) Glucose Level 102 MG/DL (74-106) 185 MG/DL (74-106) H Lactic Acid Level 0.90 mmol/L (0.4-2.0) Calcium Level 9.6 MG/DL (8.5-10.1) 9.2 MG/DL (8.5-10.1) Total Bilirubin 0.4 MG/DL (0.2-1.0) Aspartate Amino Transf (AST/SGOT) 33 U/L (15-37) Alanine Aminotransferase (ALT/SGPT) 43 U/L (12-78) Alkaline Phosphatase 67 U/L (46-116) Total Protein 8.4 G/DL (6.4-8.2) H Albumin 3.5 G/DL (3.4-5.0) Globulin 4.9 g/dL Albumin/Globulin Ratio 0.7 (1.0-2.7) L Lipase 55 U/L (73-393) L Differential Total Cells Counted 100 Neutrophils % (Manual) 88 % (45-75) H Lymphocytes % (Manual) 5 % (20-45) L Monocytes % (Manual) 6 % (1-10) Eosinophils % (Manual) 0 % (0-3) Basophils % (Manual) 0 % (0-2) Band Neutrophils 1 % (0-8) Platelet Estimate Adequate Platelet Morphology Normal Red Blood Cell Morphology Normal Assessment Post-op Diagnosis incarcerated right inguinal hernia Plan Additional Comments discharge to home Christian Goss MD Jul 12, 2018 11:23
--- NOTE | 2018-07-12 11:26 | Discharge Instructions ---
Discharge Instructions Discharge Instructions Follow up with: my office in one week Diet: regular Resume Normal Activity?: Yes Activity: as tolerated For Surgical Patients Dressing Care: other - don`t remove dressing MD will remove it May shower: Yes For Congestive Heart Failure Reminder Report to your physician any weight gain of 5 pounds or more in one week. Christian Goss MD Jul 12, 2018 11:26
[2018-07-12 12:00] VITALS: BP 123/73
--- NOTE | 2018-07-12 12:25 | 48 Hour Post Anesthesia Eval ---
Post Anesthesia Evaluation Procedure: R Inguinal Herninorrhaphy Date of Evaluation: Jul 12, 2018 Time of Evaluation: 12:24 Blood Pressure Systolic: 128 0: 58 Pulse Rate: 72 Respiratory Rate: 20 Temperature (Fahrenheit): 97.6 O2 Sat by Pulse Oximetry: 98 Airway: patent Nausea: No Vomiting: No Pain Intensity: 2 Hydration Status: adequate Cardiopulmonary Status: stable Mental Status/LOC: patient returned to baseline Follow-up Care/Observations: n/a Post-Anesthesia Complications: none Follow-up care needed: N/A Papito Mcclelland MD Jul 12, 2018 12:25
--- NOTE | 2018-07-12 15:11 | Cardiology Report ---
APPROVED REPORT EKG Measurement Heart [id number] Sinus bradycardia Otherwise normal ECG
[2018-07-12 16:00] VITALS: BP 121/75
[2018-07-12] MEDS ORDERED: TRAMADOL HCL100 M2 ORAL ×2 (16:58→17:00)
[2018-07-12] MEDS ORDERED: CEPHALEXIN500 MG ORAL (16:58)
[2018-07-12] MEDS ORDERED: SENNA-DOCUSATE1 EAC1 PO (17:02)
[2018-07-12] MEDS ORDERED: Tubing IV Secondary IV ONE (18:47)
--- NOTE | 2018-07-12 21:30 | Discharge Summary ---
DATE OF ADMISSION: 07/11/2018 DATE OF DISCHARGE: 07/12/2018 ADMITTING DIAGNOSIS: Strangulated right inguinal hernia. DISCHARGE DIAGNOSIS: Incarcerated right inguinal hernia. OPERATION: Right inguinal herniorrhaphy. COMPLICATIONS: None. INDICATION: This is a 57-year-old male, who presented to emergency room with a few hours of severe pain in the right groin and scrotum. He stated that he has had a right inguinal hernia for about 3 months but approximately about noon on the day of admission, the hernia has been irreducible and painful. He had nausea but no vomiting. Physical examination showed irreducible right inguinal hernia which extended all the way to the bottom of the scrotum. It was very tender and tense. HOSPITAL COURSE: The patient was admitted to hospital and immediately underwent a right inguinal herniorrhaphy during which the incarceration of large amount of the small bowel was reduced. Postoperative course uneventful and at the time of this dictation the patient is afebrile and vital signs are stable. He had his breakfast and he has passed gas. So at this time, he will be discharged from home. He has had breakfast and he has a mild pain in the scrotum. Physical examination showed that the incision is healing well. He has a mild edema of the scrotum. Otherwise he is free of the recurrence of hernia so at this time he will be discharged to home to be followed in my office in one week. Discharge medications, Keflex, Samira-Colace, and tramadol. CONDITION OF THE PATIENT AT THE TIME OF DISCHARGE: Improved. Followup office in the one week. The patient has been instructed about diet, activity, showering, and medication. Christian Goss M.D. DR: Daniela JOB#: [id number] CC:
== END 2018-07-12 18:48 | disposition home or self-care (01) ==
LOC: EDBD 15:43 → EMR 16:08 → EDBEDREQ 17:15 → 3E 17:35 → INTOOBSV 17:35 → EDBEDREQ 18:30 → EMR 18:33 → 3E 21:35
DX: K40.30 Unilateral inguinal hernia, with obstruction, without gangrene, not specified as recurrent (principal)
CPT/HCPCS: 36415; 49507; 80048; 80053; 81003; 83605; 83690; 85007; 85025; 85610; 85730; 93005; 96360; 96361; 96365; 96366; 96375; 99285; C1781; G0378; J0690; J1100; J1170; J1885; J2250; J2270; J2405; J2704; J3010; J3490; Z7512; 94003; 94150

== ENCOUNTER 2018-07-18 11:55 | Emergency (ER) | payer OTHER ==
[~2018-07-18] VITALS: Ht 185.4 cm; Wt 86.2 kg
[~2018-07-18 11:55] MED LIST: CEPHALEXIN500 MG ORAL; SENNA-DOCUSATE1 EAC1 PO; TRAMADOL HCL100 M2 ORAL
[2018-07-18 12:20] VITALS: BP 122/83
--- NOTE | 2018-07-18 12:26 | Emergency Room Report ---
History of Present Illness General Chief Complaint: Wound Recheck/Suture Removal Source: Patient, Medical Record Present Illness HPI 57-year-old male presents to the emergency department for wound check and suture removal. Patient reports that he had inguinal hernia injury perform last week and was told to follow-up in one week. Patient denies fevers, chills , tenderness or pain. Pt. denies bleeding or discharge, he states he has not taken bandage off. Allergies: Coded Allergies: No Known Allergies (Unverified , 07/11/18) Patient History Past Medical History: see triage record Past Surgical History: none Pertinent Family History: none Immunizations: UTD Reviewed Nursing Documentation: PMH: Agreed; PSxH: Agreed Nursing Documentation-PMH Past Medical History: No History, Except For Hx Cardiac Problems: Yes Hx Hypertension: Yes Hx Cancer: No Hx Gastrointestinal Problems: No Hx Neurological Problems: No Review of Systems All Other Systems: negative except mentioned in HPI Physical Exam Vital Signs Date Time Temp Pulse Resp B/P (MAP) Pulse Ox O2 Delivery O2 Flow Rate FiO2 07/18/18 12:10 98.5 70 18 122/83 96 Room Air 98.4 Sp02 EP Interpretation: reviewed, normal General Appearance: no apparent distress, alert, GCS 15, non-toxic Head: normocephalic, atraumatic ENT: hearing grossly normal, normal voice Neck: full range of motion Respiratory: lungs clear, normal breath sounds, speaking full sentences Cardiovascular #1: regular rate, rhythm Gastrointestinal: non tender, soft Genitourinary: other - Healing postsurgical incision in the right inguinal area , no obvious signs of infection. Appears to have been closed with dissolvable subcutaneous running stitch, no visible suture to be removed. Musculoskeletal: back normal, gait/station normal, normal range of motion, non- tender Neurologic: alert, oriented x3, responsive, motor strength/tone normal, sensory intact, speech normal, grossly normal Psychiatric: judgement/insight normal Skin: normal color, no rash, warm/dry, well hydrated, wd healing/no infection noted - Healing postsurgical incision in the right inguinal area, no obvious signs of infection. Appears to have been closed with dissolvable subcutaneous running stitch, no visible suture to be removed. Lymphatic: no adenopathy Medical Decision Making PA Attestation Dr. Gage is my supervising Physician whom patient management has been discussed with. Diagnostic Impression: Primary Impression: Encounter for postoperative wound check ER Course 57-year-old male presents to the emergency department for wound check and suture removal. Patient reports that he had inguinal hernia injury perform last week and was told to follow-up in one week. Patient denies fevers, chills , tenderness or pain. Pt. denies bleeding or discharge, he states he has not taken bandage off. Ddx considered but are not limited to laceration, tendon injury, cellulitis, dehiscence. Vital signs: are WNL, pt. is afebrile H&PE are most consistent with: Healing postsurgical incision in the right inguinal area, no obvious signs of infection. Appears to have been closed with dissolvable subcutaneous running stitch, no visible suture to be removed. It appears this patient was seen by Dr. Haddad and he was a direct admit for surgery. Discussed with patient that he needs to follow-up with his surgeon and that I will give him his referral information. ORDERS: none required at this time, the diagnosis is clinical ED INTERVENTIONS: - wound dressing change. DISCHARGE: At this time pt. is stable for d/c to home. Will provide printed patient care instructions, and any necessary prescriptions. Care plan and follow up instructions have been discussed with the patient prior to discharge. Last Vital Signs Date Time Temp Pulse Resp B/P (MAP) Pulse Ox O2 Delivery O2 Flow Rate FiO2 07/18/18 12:10 98.5 70 18 122/83 96 Room Air 98.4 Disposition: HOME, SELF-CARE Condition: Stable Referrals: Christian Goss MD Patient Instructions: Wound Check Additional Instructions: Take medications as directed. Follow up with a Dr. Goss in 3 days, even if your symptoms have resolved. - His information is attached Return sooner to ED if new symptoms occur, or current symptoms become worse. - Please note that this Emergency Department Report was dictated using shenzhoufuformula checker technology software, occasionally this can lead to erroneous entry secondary to interpretation by the dictation equipment. Akanksha Perdomo Jul 18, 2018 12:26
[2018-07-18 13:25] VITALS: BP 122/83
== END 2018-07-18 13:27 | disposition home or self-care (01) ==
LOC: EMR 12:22
DX: Z48.01 Encounter for change or removal of surgical wound dressing (principal)
CPT/HCPCS: 99282

== ENCOUNTER → 2019-07-25 | Emergency (ER) | payer OTHER ==
[~2019-07-25] VITALS: Ht 185.4 cm; Wt 86.2 kg
[~2019-07-25] MED LIST changes: +IBUPROFEN600 MG ORAL; +Lidocaine 2% 20mg/ml/EPI 0.01mg/ml 20ml INJ ONE; +MUPIROCIN22 GM TOPIC; +Neosporin Oint Ud Pkt TOPIC ONE; +VIBRAMYCIN100 MG ORAL
[2019-07-25 12:31] VITALS: BP 137/84
--- NOTE | 2019-07-25 13:02 | NUR ---
ED Nurse Note: First contact with pt. a/ox4. c/o multiple abscesses on posterior lower head. Breathing normal/unlabored/even. Skin warm/dry/intact. NAD noted. I&D set up at bedside, consent obtained and witnessed by RN.
--- NOTE | 2019-07-25 13:35 | NUR ---
ED Nurse Note: pt in bed resting comfotably.
--- NOTE | 2019-07-25 13:36 | Emergency Room Report ---
History of Present Illness General Chief Complaint: Skin Rash/Abscess Source: Patient Present Illness HPI 58 YO male presents to the ED c/o progressive 05/31 in severity pain, swelling, and erythema of the posterior scalp with lumps x 1 week. Pt. thinks he sustained insect bites. He reports that 1 of the lumps is draining discharge. He denies itching. He denies trauma or fall. Pt. denies fevers, chills or swollen tender lymph nodes. Denies lesions/rashes elsewhere on the body. Denies new medications or body washes or creams. Denies swelling of the lips, tongue , throat or airway. Denies wheezing, or shortness of breath. Denies recent travel , recent illness or ill contacts. denies blisters, oral lesions, or sloughing of the skin. Allergies: Coded Allergies: No Known Allergies (Unverified , 07/11/18) Patient History Past Medical History: see triage record Past Surgical History: none Pertinent Family History: none Immunizations: UTD Reviewed Nursing Documentation: PMH: Agreed; PSxH: Agreed Nursing Documentation-PMH Past Medical History: No History, Except For Hx Cardiac Problems: Yes Hx Hypertension: Yes Hx Cancer: No Hx Gastrointestinal Problems: No Hx Neurological Problems: No - hyperthyroidism Review of Systems All Other Systems: negative except mentioned in HPI Physical Exam Vital Signs Date Time Temp Pulse Resp B/P (MAP) Pulse Ox O2 Delivery O2 Flow Rate FiO2 07/25/19 12:31 99.0 83 20 137/84 98 Room Air Sp02 EP Interpretation: reviewed, normal General Appearance: no apparent distress, alert, GCS 15, non-toxic Head: normocephalic, other - abscess of the posterior scalp x 2 ( one is 1.5cm and draining purulent d/c) ( the second is 2cm in diameter and has a central pustule and some palpable fluctuance as well as surrounding induration) . No blisters or vessicles. Eyes: bilateral eye normal inspection, bilateral eye PERRL ENT: hearing grossly normal, normal voice Neck: full range of motion, no meningismus, no bony tend Respiratory: lungs clear, normal breath sounds, speaking full sentences Cardiovascular #1: regular rate, rhythm Musculoskeletal: back normal, gait/station normal, normal range of motion, non- tender Neurologic: alert, oriented x3, responsive, motor strength/tone normal, sensory intact, normal gait, speech normal, grossly normal Psychiatric: judgement/insight normal Skin: other - abscess of the posterior scalp x 2 ( one is 1.5cm and draining purulent d/c) ( the second is 2cm in diameter and has a central pustule and some palpable fluctuance as well as surrounding induration). No blisters or vessicles. Lymphatic: no adenopathy Procedures Incision and Drainage Incision and Drainage #1: Consent: Verbal Site: posterior scalp on the left side Blade Size: 11 I & D Procedure: betadine prep, sterile drapes applied, sterile dressing applied Wound Location: head Wound's Depth, Shape: superficial, linear Wound Length (cm): 1 Wound Explored: contaminated - purulent d/c expressed Irrigated w/ Saline (ccs): 30 Anesthesia: Lidocaine w/ Epi Volume Anesthetic (ccs): 2 Splint Applied?: No Sling Applied?: No Patient Tolerated: Well Complications: None Incision and Drainage #2: Consent: Verbal Site: Posterior scalp on the right side Blade Size: 11 I & D Procedure: betadine prep, sterile drapes applied, sterile dressing applied Wound Location: head Wound's Depth, Shape: superficial, linear Wound Length (cm): 2 Wound Explored: contaminated - purulent d/c was expressed Irrigated w/ Saline (ccs): 40 Anesthesia: Lidocaine w/ Epi - 2% Volume Anesthetic (ccs): 3 Splint Applied?: No Sling Applied?: No Patient Tolerated: Well Complications: None Medical Decision Making PA Attestation Dr. Patrick Is my supervising Physician whom patient management has been discussed with. Diagnostic Impression: Primary Impression: Abscess ER Course 58 YO male presents to the ED c/o progressive 05/31 in severity pain, swelling, and erythema of the posterior scalp with lumps x 1 week. Pt. thinks he sustained insect bites. He reports that 1 of the lumps is draining discharge. He denies itching. He denies trauma or fall. Pt. denies fevers, chills or swollen tender lymph nodes. Denies lesions/rashes elsewhere on the body. Denies new medications or body washes or creams. Denies swelling of the lips, tongue , throat or airway. Denies wheezing, or shortness of breath. Denies recent travel , recent illness or ill contacts. denies blisters, oral lesions, or sloughing of the skin. Ddx considered but are not limited to cellulitis, abscess, cystic acne, necrotizing fasciitis, insect bite. Vital signs: are WNL, pt. is afebrile H&PE are most consistent with abscess of the posterior scalp x 2 ORDERS: none required at this time, the diagnosis is clinical ED INTERVENTIONS: -I & D x 2 - Neosporin was administered. -PT. is to follow up with primary care/ derm. d/w pt. may require surgical removal of capsule as one appeared to be cystic in consistency DISCHARGE: At this time pt. is stable for d/c to home. Will provide printed patient care instructions, and any necessary prescriptions. Care plan and follow up instructions have been discussed with the patient prior to discharge. Last Vital Signs Date Time Temp Pulse Resp B/P (MAP) Pulse Ox O2 Delivery O2 Flow Rate FiO2 07/25/19 12:31 99.0 84 20 137/84 (101) 98 Room Air Disposition: HOME, SELF-CARE Condition: Stable Scripts Mupirocin* (MUPIROCIN*) 22 Gm Oint...g. 1 APPLIC TOPIC THREE TIMES A DAY, #22 GM Prov: Akanksha Perdomo 07/25/19 Ibuprofen* (MOTRIN*) 600 Mg Tablet 600 MG ORAL THREE TIMES A DAY, #30 TAB 0 Refills Prov: Akanksha Perdomo 07/25/19 Doxycycline Hyclate* (VIBRAMYCIN*) 100 Mg Capsule 100 MG ORAL EVERY 12 HOURS for 7 Days, #14 CAP 0 Refills Prov: Akanksha Perdomo 07/25/19 Referrals: NON PHYSICIAN (PCP) Patient Instructions: Abscess Additional Instructions: Take medications as directed. Follow up with a Primary Care Provider in 3-5 days, even if your symptoms have resolved. May require surgical removal of capsule once infection has cleared. --Please review list of primary care clinics, if you do not already have a primary care provider Return sooner to ED if new symptoms occur, or current symptoms become worse. - Please note that this Emergency Department Report was dictated using Nvigenphlebotomist lab assistant technology software, occasionally this can lead to erroneous entry secondary to interpretation by the dictation equipment. Akanksha Perdomo Jul 25, 2019 13:36
== END | disposition home or self-care (01) ==
LOC: EMR 12:56
DX: L02.811 Cutaneous abscess of head [any part, except face] (principal); I10 Essential (primary) hypertension; E05.90 Thyrotoxicosis, unspecified without thyrotoxic crisis or storm
CPT/HCPCS: 10060; Z7502; 99283

== ENCOUNTER 2020-10-26 15:46 | Emergency (ER) | payer OTHER ==
[~2020-10-26] VITALS: Ht 185.4 cm; Wt 81.6 kg
[~2020-10-26 15:46] MED LIST changes: -Lidocaine 2% 20mg/ml/EPI 0.01mg/ml 20ml INJ ONE; -Neosporin Oint Ud Pkt TOPIC ONE
[2020-10-26 15:59] VITALS: BP 156/84
--- NOTE | 2020-10-26 16:09 | NUR ---
ED Nurse Note: Patient from home and walked in due to right hip pain that radiates to his RLE since yesterday. Denies any recent injury. No apparent fracture or deformity. Patient is AAO x4, ambulatory.
[2020-10-26] MEDS ORDERED: Ketorolac 30mg Inj IM ONE (16:15)
[2020-10-26] MEDS ORDERED: NAPROXEN500 M2 ORAL (16:15)
[2020-10-26] MEDS ORDERED: MEDROL DOSEPAK4 MG ORAL (16:15)
[2020-10-26] MEDS ORDERED: HYDROcodone/Acetamin 5/325 tab ORAL ONE (16:15)
[2020-10-26] MEDS ORDERED: ROBAXIN-750750 MG PO (16:15)
--- NOTE | 2020-10-26 17:02 | Emergency Room Report ---
History of Present Illness General Chief Complaint: Pain Source: Patient, Medical Record Present Illness HPI Disclaimer: Please note that this report is being documented using DRAGON technology. This can lead to erroneous entry secondary to incorrect interpretation by the dictating instrument. HPI: 80-year-old male history of low back pain presents with right-sided low back pain. He states is been present for the past 24 hours. Radiating down the right leg. Denies any specific trauma. Denies any fall. Denies any bowel or bladder incontinence,. Ambulatory on arrival. Allergies: Coded Allergies: No Known Allergies (Unverified , 07/11/18) COVID-19 Screening Contact w/high risk pt: No Experienced COVID-19 symptoms?: No COVID-19 Testing performed ASSIGNER: No Patient History Reviewed Nursing Documentation: PMH: Agreed; PSxH: Agreed Nursing Documentation-PMH Past Medical History: No History, Except For Hx Cardiac Problems: Yes Hx Hypertension: Yes Hx Cancer: No Hx Gastrointestinal Problems: No Hx Neurological Problems: No - hyperthyroidism Review of Systems All Other Systems: negative except mentioned in HPI Physical Exam Vital Signs Date Time Temp Pulse Resp B/P (MAP) Pulse Ox O2 Delivery O2 Flow Rate FiO2 10/26/20 15:59 98.6 72 16 156/84 97 Room Air Sp02 EP Interpretation: reviewed, normal General Appearance: well appearing, no apparent distress Head: normocephalic, atraumatic Eyes: bilateral eye PERRL, bilateral eye EOMI ENT: hearing grossly normal, moist mucus membranes Neck: full range of motion, supple Respiratory: lungs clear, normal breath sounds, no rhonchi, no respiratory distress, no retraction, no wheezing Cardiovascular #1: normal peripheral pulses, regular rate, rhythm, no murmur Gastrointestinal: non tender, soft, non-distended, no guarding Musculoskeletal: other - Mild right-sided low back tenderness. No midline tenderness step-off or deformity, 2+ pulses throughout lower extremities. Sensation intact throughout. Neurologic: alert, oriented x3, no focal defects Skin: normal color, warm/dry Medical Decision Making Diagnostic Impression: Primary Impression: Low back pain ER Course Differential diagnosis includes but not limited to low back sprain, sciatica, less likely fracture the spinal column or spinal cord compression. Patient was in no acute distress he was neurovascularly intact. His pain and symptoms was consistent with sciatica and radiculopathy. In the ER given Toradol and [place]. Will discharge on muscle relaxants, anti-inflammatories and steroid taper. Commend follow-up with PMD. Return precautions given. Last Vital Signs Date Time Temp Pulse Resp B/P (MAP) Pulse Ox O2 Delivery O2 Flow Rate FiO2 10/26/20 15:59 98.6 72 16 156/84 (108) 97 Room Air Disposition: HOME, SELF-CARE Condition: Stable Scripts Naproxen* (NAPROXEN*) 500 Mg Tablet 500 MG ORAL TWICE A WEEK PRN for For Pain, #60 TAB 0 Refills Prov: Kody Dykes M.D. 10/26/20 Methylprednisolone (Methylprednisolone*) 4MG Dspk 4 MG ORAL DIRECTED for 6 Days, #21 EA 0 Refills Day 1: Two tablets before breakfast, one after lunch, one after dinner, and two at bedtime. If started late in the day, take all six tablets at once or divide into two or three doses, unless otherwise directed by prescriber. Day 2: One tablet before breakfast, one after lunch, one after dinner, and two at bedtime Day 3: One tablet before breakfast, one after lunch, one after dinner, and one at bedtime Day 4: One tablet before breakfast, one after lunch, and one at bedtime Day 5: One tablet before breakfast and one at bedtime Day 6: One tablet before breakfast Prov: Kody Dykes M.D. 10/26/20 Methocarbamol* (ROBAXIN-750*) 750 Mg Tablet 750 MG PO TID PRN for low back pain, #21 TAB 0 Refills Prov: Kody Dykes M.D. 10/26/20 Patient Instructions: Sciatica, [id number] Additional Instructions: Patient is instructed to follow-up with her primary care doctor, primary care clinic or [facility] in 1 to 2 days. Patient instructed to return for any worsening symptoms or concerns. Kody Dykes M.D. Oct 26, 2020 17:02
[2020-10-26 17:03] VITALS: BP 143/81
--- NOTE | 2020-10-26 17:03 | NUR ---
ER DISCHARGE NOTE: Patient is cleared to be discharged per ERMD, pt is aox4, on room air, with stable vital signs. pt was given dc and prescription instructions, pt was able to verbalize understanding, pt id band removed. pt is able to go out with wheelchair assistance. pt took all belongings.
== END 2020-10-26 17:03 | disposition home or self-care (01) ==
LOC: EMR 16:09
DX: M54.5 Low back pain (principal); I11.9 Hypertensive heart disease without heart failure; E05.90 Thyrotoxicosis, unspecified without thyrotoxic crisis or storm
CPT/HCPCS: 96372; J1885; Z7502; 99283